=== PATIENT | male | born 1990 | race Caucasian/White ===

== ENCOUNTER 2017-11-17 16:24 | Emergency (ER) | payer BC, OTHER | END 2017-11-17 17:37 | disposition home or self-care (01) | LOC: ERS 16:24 | DX: L03.211 Cellulitis of face (principal) | CPT/HCPCS: 99282 ==

== ENCOUNTER 2018-01-05 14:00 | Emergency (ER) | payer BC ==
[2018-01-05 14:40] LABS: Bilirubin Negative (Negative); Blood, Urine Negative (Negative); Clarity CLEAR (Clear); Glucose, Urine (Dipstick) Negative (Negative); Leukocyte Negative (Negative); Nitrite Negative (Negative); Protein, Urine (Dipstick) Negative (Neg-Trace); Specific Gravity, Urine 1.007 (1.002-1.036); Urobilinogen 0.2 mg/dL (0.2-1.0)
--- NOTE | 2018-01-05 15:23 | ULT ---
TESTICULAR ULTRASOUND: HISTORY: Right testicular pain. FINDINGS: Both testicles are homogeneous and both testicles show normal and equal blood flow with color Doppler and spectral analysis. There are small bilateral hydroceles. Both epididymi are prominent. The right epididymis is somewhat nodular in appearance with areas of h yperechogenicity. The heads of both epididymi are prominent and there is a small cyst seen in the he ad of the left epididymis measuring approximately 6 mm. IMPRESSION: 1. Both testicles show symmetric and normal blood flow. 2. Small bilateral hydroceles. 3. The epididymi are prominent bilaterally. The right epididymis is especially prominent and nodula r in appearance. Epididymitis should be considered. Recommend urologic consult and followup. POS: [id number]
[2018-01-05] MEDS ORDERED: Ketorolac Tromethamine 60 MG/2 ML VIAL ONE (16:30)
== END 2018-01-05 17:10 | disposition home or self-care (01) ==
LOC: ERS 14:00
DX: N45.1 Epididymitis (principal)
CPT/HCPCS: 76870; 81003; 93976; 96372; J1885

== ENCOUNTER 2020-08-18 19:52 | Emergency (ER) | payer BC, OTHER ==
[2020-08-18 20:38] LABS: #Eosinphils 0.1 thou/uL (0.0-0.7); #Lymphocytes 2.5 thou/uL (1.20-3.40); #Monocytes 1.1 thou/uL (0.11-0.59); #Neutrophils 10.9 thou/uL (1.40-6.50); %Basophils 0.2 % (0.0-1.0); %Lymphocytes 16.8 % (21.0-51.0); %Monocytes 7.6 % (0.0-10.0); %Neutrophils 74.4 % (42.0-75.0); Hemoglobin 15.1 g/dL (14.0-18.0); Mean Corpuscular HGB CONC 36.1 g/dL (32.0-36.0); Mean Corpuscular Volume 88.7 fL (78.0-98.0); Mean Platelet Volume 7.9 fL (7.4-10.4); Platelet Count 252 thou/uL (130-400); RBC Distribution Width 11.1 % (11.5-14.5); Red Blood Cell (RBC) Count 4.72 mill/uL (4.70-6.10); White Blood Cell (WBC) Count 14.6 thou/uL (4.8-10.8)
[2020-08-18 20:40] LABS: Bilirubin Negative (Negative); Blood, Urine Negative (Negative); Clarity Clear (Clear); Glucose, Urine (Dipstick) Normal (Negative); Ketone, Urine Negative (Negative); Leukocyte Negative Leu/uL (Negative); Nitrite Negative (Negative); Protein, Urine (Dipstick) Negative (Neg-Trace); Specific Gravity, Urine 1.004 (1.002-1.036); Urobilinogen Normal mg/dL (Less than 2)
[2020-08-18] MEDS ORDERED: Morphine 4 MG/ML VIAL ONE (20:48)
[2020-08-18] MEDS ORDERED: Ketorolac Tromethamine 30 MG/ML VIAL ONE (20:48)
[2020-08-18 21:02] LABS: ALT (SGPT) 33 U/L (8-55); AST (SGOT) 46 U/L (5-34); Alkaline Phosphatase 68 U/L (40-110); Anion Gap 13 mmol/L (10-20); BUN (Urea Nitrogen) 5 mg/dL (8.9-20.6); Bilirubin, Total 0.8 mg/dL (0.2-1.2); Calc. Creatinine Clearance 0 mL/min (70-130); Calcium 9.3 mg/dL (7.8-10.44); Carbon Dioxide 27 mmol/L (22-29); Chloride 102 mmol/L (98-107); Globulin 2.6 g/dL (2.4-3.5); Glucose 96 mg/dL (70-105); Lipase 23 U/L (8-78); Potassium 3.6 mmol/L (3.5-5.1); Protein, Total 7.6 g/dL (6.0-8.3); Sodium 138 mmol/L (136-145)
== END 2020-08-18 22:16 | disposition home or self-care (01) ==
LOC: ERS 19:52
DX: R07.9 Chest pain, unspecified (principal); M62.838 Other muscle spasm
CPT/HCPCS: 74176; 80053; 81003; 83690; 85025; 87086; 96374; 96375; J1885; J2270

== ENCOUNTER 2020-09-25 12:21 | Emergency (ER) | payer OTHER | END 2020-09-25 13:47 | disposition home or self-care (01) | LOC: ERS 12:21 | DX: K64.8 Other hemorrhoids (principal) | CPT/HCPCS: 99283 ==

== ENCOUNTER 2020-12-16 12:13 | Emergency (ER) | payer OTHER | END 2020-12-16 13:31 | disposition left against medical advice (07) | LOC: ERS 12:13 | DX: Z53.21 Procedure and treatment not carried out due to patient leaving prior to being seen by health care provider (principal) ==